=== PATIENT | female | born 1950 | race Caucasian/White ===

== ENCOUNTER 2017-01-15 19:09 | Inpatient (IN) | payer MEDICARE, BC ==
[2017-01-15] MEDS ORDERED: Sodium Chloride 0.9% 10 ML Syringe FLUSH PRN (19:40)
[2017-01-15] MEDS ORDERED: Labetalol 20 MG/4 ML Syringe IVPUSH ONE (20:15)
--- NOTE | 2017-01-15 22:05 | EDM.PDOC ---
ED HPI NEURO - General Chief Complaint: Neuro Symptoms/Deficits Stated Complaint: NUMBNESS LEFT SIDE Time Seen by Provider: 01/15/17 19:32 Source: Reports: Patient History Limitations: Reports: No limitations - History of Present Illness INITIAL COMMENTS - FREE TEXT/NARRATIVE: History of present illness: [A 66-year-old female presents with left-sided numbness of her arms and legs intermittent over the last week. She does have a history of a TIA about 16 years ago which was also left-sided. She is placed on statins aspirin beta jordan and lisinopril at that time has religiously taken them since then. She works part-time over at [employer] and today was working in her arm went numb her left arm and lasted for over an hour so she decided to come to ER and be evaluated. No ESTRADA. No slurred speech. No visual disturbance. No weakness. ] Review of systems: As per history of present illness and below otherwise all systems reviewed and negative. Past medical history: As per history of present illness and as reviewed below otherwise noncontributory. Surgical history: As per history of present illness and as reviewed below otherwise noncontributory. Social history: No reported history of drug or alcohol abuse. Family history: As per history of present illness and as reviewed below otherwise noncontributory. Physical exam: HEENT: Atraumatic, normocephalic, pupils reactive, negative for conjunctival pallor or scleral icterus, mucous membranes moist, throat clear, neck supple, nontender, trachea midline. Lungs: Clear to auscultation, breath sounds equal bilaterally, chest nontender. Heart: S1S2, regular, negative for clicks, rubs, or JVD. Abdomen: Soft, nondistended, nontender. Negative for masses or hepatosplenomegaly. Negative for costovertebral tenderness. Pelvis: Stable nontender. Genitourinary: Deferred. Rectal: Deferred. Extremities: Atraumatic, negative for cords or calf pain. Neurovascular unremarkable. Neuro: Awake, alert, oriented. Cranial nerves II through XII unremarkable. Left arm sensation to light touch was diminished but resolved while in ER Diagnostics: [CT neg. CBC and complete metabolic panel UA EKG all done her creatinine is elevated. EKG seems to be demonstrating a probable old anterior infarct] Therapeutics: [] Impression: [TIA] Plan: [I spoke with Dr. Reveles in [facility] regarding this patient. He suggested that she could be admitted and observed overnight and carotid artery studies done tomorrow as well as an MRI of her brain and then a echocardiogram could be performed on Saturday. He recommended that she could be switched to Plavix during the workup and then have neurology follow up. I spoke with Dr. Metcalf who agrees to this plan and will be coming in to do the admission] Definitive disposition and diagnosis as appropriate pending reevaluation and review of above. - Related Data Allergies/ADRs: Allergies Allergy/AdvReac Type Severity Reaction Status Date / Time No Known Allergies Allergy Verified 01/15/17 19:18 Home Meds: Home Meds Aspirin 325 mg PO DAILY 05/03/16 [History] Cyanocobalamin (Vitamin B-12) [B-12] 500 mcg PO DAILY 05/03/16 [History] Hydrochlorothiazide 25 mg PO DAILY 05/03/16 [History] Ibuprofen [Advil] 200 mg PO Q8H PRN 05/03/16 [History] Metoprolol Tartrate [Metoprolol Tartrate] 0.5 tab PO DAILY 05/03/16 [History] Pravastatin [Pravachol] 40 mg PO BEDTIME 05/03/16 [History] Rizatriptan [Maxalt MEAT COUNTER WORKER] 10 mg PO ASDIRECTED PRN 05/03/16 [History] Past Medical History HEENT History: Reports: Impaired vision Cardiovascular History: Reports: Hypertension 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: Musculoskeletal History: Reports: Arthritis Neurological History: Reports: Migraines, TIA Oncologic (Cancer) History: Reports: Other (see below) Other Oncologic History: precancerous cells, hysterectomy at age 39 - Infectious Disease History Infectious Disease History: Reports: Measles, Mumps - Past Surgical History HEENT Surgical History: Reports: Tonsillectomy GI Surgical History: Reports: Appendectomy, Colonoscopy Female Surgical History: Reports: Hysterectomy Musculoskeletal Surgical History: Reports: Knee replacement, Other (see below) Other Musculoskeletal Surgeries/Procedures:: left knee replacement in 2002; left ankle reconstruction Social & Family History - Family History Family Medical History: Noncontributory - Tobacco Use Smoking Status *Q: Former Smoker - Caffeine Use Caffeine Use: Reports: Coffee - Alcohol Use Days Per Week of Alcohol Use: 2 Number of Drinks Per Day: 1 Total Drinks Per Week: 2 - Recreational Drug Use Recreational Drug Use: No ED ROS GENERAL - Review of Systems Review Of Systems: ROS reveals no pertinent complaints other than HPI. ED EXAM, NEURO - Physical Exam Exam: See Below Course - Vital Signs Last Recorded V/S: Last Vital Signs Temp 35.3 C 01/15/17 20:39 Pulse 63 01/15/17 19:14 Resp 20 01/15/17 20:39 BP 157/78 H 01/15/17 20:39 Pulse Ox 96 01/15/17 20:39 - Orders/Labs/Meds Orders: Active Orders 24 hr Category Date Time Status EKG Documentation Completion [RC] ASDIRECTED Care 01/15/17 20:12 Active EKG Documentation Completion [RC] ASDIRECTED Care 01/15/17 21:14 Ordered CXR [Chest 2V] [CR] Stat Exams 01/15/17 21:25 Ordered Head wo Cont [CT] Stat Exams 01/15/17 19:32 Taken Sodium Chloride 0.9% [Saline Flush] Med 01/15/17 19:40 Active 10 ml FLUSH ASDIRECTED PRN Saline Lock Insert [OM.PC] Routine Oth 01/15/17 19:40 Ordered EKG 12 Lead [EK] Routine Ther 01/15/17 21:14 Ordered EKG 12 Lead [EK] Stat Ther 01/15/17 20:11 Ordered Medication Orders Sodium Chloride (Saline Flush) 10 ml FLUSH ASDIRECTED PRN PRN Reason: Keep Vein Open Last Admin: 01/15/17 20:08 Dose: 10 ml Labs: Laboratory Tests 01/15/17 01/15/17 01/15/17 Range/Units 20:11 20:29 20:29 WBC 7.8 (4.5-11.0) K/uL RBC 4.40 (3.30-5.50) M/uL Hgb 12.5 (12.0-15.0) g/dL Hct 38.3 (36.0-48.0) % MCV 87 (80-98) fL MCH 28 (27-31) pg MCHC 33 (32-36) % Plt Count 232 (150-400) K/uL Neut % (Auto) 61 (36-66) % Lymph % (Auto) 29 (24-44) % Douglas % (Auto) 8 H (2-6) % Eos % (Auto) 1 L (2-4) % Baso % (Auto) 0 (0-1) % ESR 11 (0-25) mm/hr PT 11.4 (9.5-12.0) sec INR 1.07 (0.80-1.20) Sodium 142 (140-148) mmol/L Potassium 3.7 (3.6-5.2) mmol/L Chloride 107 (100-108) mmol/L Carbon Dioxide 28 (21-32) mmol/L Anion Gap 6.8 (5.0-14.0) mmol/L BUN 21 H (7-18) mg/dL Creatinine 1.3 H (0.6-1.0) mg/dL Est Cr Clr Drug Dosing 37.73 mL/min Estimated GFR (MDRD) 41 L (>60) Glucose 94 (74-106) mg/dL Calcium 8.3 L (8.5-10.1) mg/dL Total Bilirubin 0.3 (0.2-1.0) mg/dL AST 19 (15-37) U/L ALT 25 (12-78) U/L Alkaline Phosphatase 36 L (46-116) U/L Troponin I (0.000-0.056) ng/mL C-Reactive Protein (0.0-0.3) mg/dL Total Protein 6.8 (6.4-8.2) g/dL Albumin 3.9 (3.4-5.0) g/dL Globulin 2.9 (2.3-3.5) g/dL Albumin/Globulin Ratio 1.3 (1.2-2.2) 01/15/17 01/15/17 Range/Units 20:29 20:48 WBC (4.5-11.0) K/uL RBC (3.30-5.50) M/uL Hgb (12.0-15.0) g/dL Hct (36.0-48.0) % MCV (80-98) fL MCH (27-31) pg MCHC (32-36) % Plt Count (150-400) K/uL Neut % (Auto) (36-66) % Lymph % (Auto) (24-44) % Douglas % (Auto) (2-6) % Eos % (Auto) (2-4) % Baso % (Auto) (0-1) % ESR (0-25) mm/hr PT (9.5-12.0) sec INR (0.80-1.20) Sodium (140-148) mmol/L Potassium (3.6-5.2) mmol/L Chloride (100-108) mmol/L Carbon Dioxide (21-32) mmol/L Anion Gap (5.0-14.0) mmol/L BUN (7-18) mg/dL Creatinine (0.6-1.0) mg/dL Est Cr Clr Drug Dosing mL/min Estimated GFR (MDRD) (>60) Glucose (74-106) mg/dL Calcium (8.5-10.1) mg/dL Total Bilirubin (0.2-1.0) mg/dL AST (15-37) U/L ALT (12-78) U/L Alkaline Phosphatase (46-116) U/L Troponin I < 0.017 (0.000-0.056) ng/mL C-Reactive Protein 0.09 (0.0-0.3) mg/dL Total Protein (6.4-8.2) g/dL Albumin (3.4-5.0) g/dL Globulin (2.3-3.5) g/dL Albumin/Globulin Ratio (1.2-2.2) Meds: Medications Generic Name Dose Route Start Last Admin Trade Name Freq PRN Reason Stop Dose Admin Sodium Chloride 10 ml 01/15/17 19:40 01/15/17 20:08 Saline Flush FLUSH 10 ml ASDIRECTED PRN Administration Keep Vein Open Discontinued Medications Generic Name Dose Route Start Last Admin Trade Name Freq PRN Reason Stop Dose Admin Labetalol HCl 20 mg 01/15/17 20:15 01/15/17 20:26 Normodyne IVPUSH 01/15/17 20:16 20 mg NOW ONE Administration Departure - Departure Time of Disposition: 22:04 Disposition: Admitted As Inpatient 65 Clinical Impression: TIA (transient ischemic attack) Qualifiers: Transient cerebral ischemia type: unspecified Qualified Code(s): G45.9 - Transient cerebral ischemic attack, unspecified Forms: ED Department Discharge - My Orders Last 24 Hours: My Active Orders 01/15/17 19:32 Head wo Cont [CT] Stat 01/15/17 19:40 Sodium Chloride 0.9% [Saline Flush] 10 ml FLUSH ASDIRECTED PRN Saline Lock Insert [OM.PC] Routine 01/15/17 20:11 EKG 12 Lead [EK] Stat 01/15/17 20:12 EKG Documentation Completion [RC] ASDIRECTED 01/15/17 21:14 EKG Documentation Completion [RC] ASDIRECTED EKG 12 Lead [EK] Routine 01/15/17 21:25 CXR [Chest 2V] [CR] Stat - Assessment/Plan Last 24 Hours: My Active Orders 01/15/17 19:32 Head wo Cont [CT] Stat 01/15/17 19:40 Sodium Chloride 0.9% [Saline Flush] 10 ml FLUSH ASDIRECTED PRN Saline Lock Insert [OM.PC] Routine 01/15/17 20:11 EKG 12 Lead [EK] Stat 01/15/17 20:12 EKG Documentation Completion [RC] ASDIRECTED 01/15/17 21:14 EKG Documentation Completion [RC] ASDIRECTED EKG 12 Lead [EK] Routine 01/15/17 21:25 CXR [Chest 2V] [CR] Stat
[2017-01-15] MEDS ORDERED: Pravastatin 20 MG Tab PO SCH (23:30)
[2017-01-16] MEDS: Clopidogrel 75 MG Tab PO SCH ×2 (00:32→08:24)
[2017-01-16] MEDS: Acetaminophen 325 MG Tab PO PRN ×2 (04:24→08:30)
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
[2017-01-16] MEDS ORDERED: Metoprolol Tartrate 25 MG Tab PO SCH (09:00)
[2017-01-16] MEDS ORDERED: Hydrochlorothiazide 25 MG Tab PO SCH (09:00)
[2017-01-16] MEDS ORDERED: Aspirin 325 MG Tab.EC PO SCH (09:00)
--- NOTE | 2017-01-16 09:20 | CR ---
Chest 2V HISTORY: TIA FINDINGS: The heart and vascular structures are normal in appearance. No infiltrates or effusions ar e demonstrated. The skeletal structures are unremarkable. IMPRESSION: Negative exam.
[2017-01-16] MEDS: Acetaminophen/Aspirin/Caffeine 250-250-65 MG Tab PO PRN ×2 (09:58→15:16)
--- NOTE | 2017-01-16 10:51 | PN ---
DATE OF SERVICE: 01/16/2017 SUBJECTIVE: This 66-year-old female was admitted in the late evening hours yesterday with recurring episodes of numbness and tingling in the left side of the extremities suggesting possible recurrent TIAs. She had no motor changes, no mental status impairment reported by the patient though with ongoing neurologic symptoms presented to the hospital for evaluation of numbness and tingling in the left upper extremity, resolved during emergency room evaluation. She was admitted for further diagnostic evaluation. She has been comfortable through the night without recurring numbness or tingling. She denies difficulty with visual distortion of thought and speech or balance. Appetite is fair. She is resting comfortably. OBJECTIVE: VITAL SIGNS: Blood pressure 121/88, pulse rate 61, sinus rhythm by cardiac monitoring, O2 sats 95% on room air, and respiratory rate 16. HEENT: No facial asymmetries. Extraocular eye movements are intact. Speech is clear. NECK: Brisk carotid pulses. No bruits. LUNGS: Clear and non tachypneic. HEART: Regular without gallops. Grade 2 systolic murmur is unchanging. EXTREMITIES: Warm pink and dry. Symmetrical strength in the upper and lower extremities. No paresthesias noted. IMPRESSION AND PLANS: Recurring episodes of sensory changes in the left-sided extremities suggesting TIAs in addition to her maintenance therapy of aspirin antiplatelet products, did also initiate Plavix 75 mg daily. She has bilateral carotid Dopplers and MRI of the head pending for later today. If imaging is found to be unremarkable, would consider discharge to home and outpatient followup tomorrow for echocardiogram to assess cardiac function and noted murmur with review in clinic early next week and consideration to referral to Neurology services to be entertained at the time of clinic follow up. If she has significant pathology noted on imaging today, we will discuss further referral for specialty service evaluation. Garett Metcalf MD /[id number]
--- NOTE | 2017-01-16 11:48 | US ---
Carotid Comp FINDINGS: The carotid arteries were assessed bilaterally with duplex imaging. There is no significan t plaque formation. There are normal peak systolic velocities within the internal carotid arteries. The right measures 82 cm per second and the left 124 cm per second. The ICA/CCA ratios are within no rmal limits. The external carotid arteries are patent bilaterally. There is antegrade flow within julee th vertebral arteries. IMPRESSION: Negative examination.
--- NOTE | 2017-01-16 14:04 | MR ---
Brain wo Cont HISTORY: No Clinical Info COMPARISON: March 2011 TECHNIQUE: The brain was imaged in the axial, sagittal, and coronal planes utilizing T1, gradient ec ho, T2, FLAIR, and diffusion-weighted techniques. FINDINGS:There are a few scattered foci of signal hyperintensity involving the deep white matter on the long TR sequences. These findings are unchanged. There is no associated mass effect or edema. Th e findings are most consistent with chronic ischemic microvascular changes of the white matter. Ther e are no space-occupying lesions. There is no hemorrhage, mass effect, or edema. Diffusion-weighted images demonstrate no findings for acute ischemia. The orbital structures appear unremarkable. There are no significant inflammatory changes of the sinuses. Normal appearing flow voids are demonstrate d throughout the cerebral vasculature. IMPRESSION 1. Stable age-related involutional changes of the brain. 2. No acute intracranial abnormalities are demonstrated.
[2017-01-16 14:46] VITALS: BP 135/87
--- NOTE | 2017-01-16 17:02 | PCM.DCSUM1 ---
Discharge Summary - Hospital Course Brief History: This patient is a 66-year-old woman who is admitted to observation status through the emergency department after she experienced recurrent episodes of left-sided numbness, felt to represent TIAs. - Discharge Data Discharge Date: 01/16/17 Discharge Disposition: Home, Self-Care 01 Condition: Fair - Discharge Diagnosis/Problem(s) (1) TIA (transient ischemic attack) SNOMED Code(s): 871434364, [id number] ICD Code: G45.9 - TRANSIENT CEREBRAL ISCHEMIC ATTACK, UNSPECIFIED Status: Acute Current Visit: Yes Qualifiers: Transient cerebral ischemia type: unspecified Qualified Code(s): G45.9 - Transient cerebral ischemic attack, unspecified - Patient Summary/Data Consults: Consultations 01/16/17 09:08 Consult to Physician [CONS] Routine Consulting Provider: Harrison Nelson Call Completed to Consulting Physician: Yes Reason for Consult: assume care Date Notified: 01/16/17 Time Notified: 09:00 Hospital Course: Ms. Reese is a 66-year-old woman who was admitted to observation status last night by Dr. Metcalf with a recent history of intermittent episodes of numbness involving her left upper and lower extremities. She does have a previous history of TIA and has been on aspirin over the past 16 years. Over the last 6 days has had several episodes of numbness involving the left upper and lower extremities. On the evening of admission developed similar symptoms in her left arm but did not resolve after several minutes she presented to the emergency room for further evaluation. Eventually symptoms did resolve in the emergency department, CT scan of the head without contrast showed no significant abnormalities. She was admitted to the hospital on observation status, neuro checks showed no new or persistent neurologic symptoms. Carotid Doppler studies were obtained and showed no evidence of significant blockage in the carotid arteries. MRI of the head was also obtained and showed no significant abnormalities. She had no recurrence of her symptoms during the course of her hospitalization. While in the emergency department neurology cardiac monitor technician had been contacted and they recommended that she continue the aspirin and be placed on Plavix 75 mg by mouth daily. Echocardiogram will be scheduled for tomorrow as an outpatient to evaluate for cardiac source of emboli. She's instructed to return to the emergency department immediately if she notes any recurrent symptoms on current therapy. She will be off work until January 21, activity will otherwise be as tolerated and she will resume her usual diet. Followup appointment has already been scheduled with her primary care provider for January 21. Recommended that she be scheduled for a neurology consult for further evaluation of symptoms. - Patient Instructions Diet: Usual Diet as Tolerated Activity: As Tolerated Other/Special Instructions: Schedule outpatient echocardiogram for tomorrow January 17, to evaluate for cardiac source of emboli. Patient already has appointment scheduled with her primary care provider for January 21. Instructed patient to return to the emergency department immediately if she notes any recurrent symptoms. - Discharge Plan Prescriptions/Med Rec: Clopidogrel [Plavix] 75 mg PO DAILY #30 tablet Home Medications: Home Meds Aspirin 325 mg PO DAILY 05/03/16 [History] Cyanocobalamin (Vitamin B-12) [B-12] 500 mcg PO DAILY 05/03/16 [History] Hydrochlorothiazide 25 mg PO DAILY 05/03/16 [History] Ibuprofen [Advil] 200 mg PO Q8H PRN 05/03/16 [History] Metoprolol Tartrate 0.5 tab PO DAILY 05/03/16 [History] Pravastatin [Pravachol] 40 mg PO BEDTIME 05/03/16 [History] Rizatriptan [Maxalt TECHNOLOGY INTEGRATION SPECIALIST] 10 mg PO ASDIRECTED PRN 05/03/16 [History] Krill/Om-3/DHA/EPA/Phospho/Ast [Krill Oil 500 mg Softgel] 1 cap PO DAILY [History] Clopidogrel [Plavix] 75 mg PO DAILY #30 tablet 01/16/17 [Rx] Referrals: Fannie Sanders PA [Primary Care Provider] - - Patient Data Vitals - Most Recent: Last Vital Signs Temp 97.8 F 01/16/17 14:45 Pulse 66 01/16/17 14:45 Resp 16 01/16/17 14:45 BP 135/87 01/16/17 14:45 Pulse Ox 97 01/16/17 14:45 Weight - Most Recent: 166 lb 7.184 oz I&O - Last 24 hours: Intake & Output 01/16/17 01/16/17 01/16/17 06:59 14:59 22:59 Intake Total 320 1100 Output Total 1000 Balance -680 1100 Med Orders - Current: Current Medications Acetaminophen (Tylenol) 650 mg PO Q4H PRN PRN Reason: analgesia/fever Last Admin: 01/16/17 08:30 Dose: 650 mg Acetaminophen/Aspirin/Caffeine (Excedrin Extra Strength) 1 tab PO Q4H PRN PRN Reason: Headache Last Admin: 01/16/17 15:16 Dose: 1 tab Aspirin (Ecotrin) 325 mg PO DAILY [facility] Last Admin: 01/16/17 08:24 Dose: 325 mg Clopidogrel Bisulfate (Plavix) 75 mg PO DAILY [facility] Last Admin: 01/16/17 08:24 Dose: 75 mg Hydrochlorothiazide (Hydrochlorothiazide) 25 mg PO DAILY [facility] Last Admin: 01/16/17 08:23 Dose: 25 mg Metoprolol Tartrate (Lopressor) 12.5 mg PO DAILY [facility] Last Admin: 01/16/17 08:24 Dose: 12.5 mg Pravastatin Sodium (Pravachol) 40 mg PO BEDTIME [facility] Last Admin: 01/16/17 00:29 Dose: Not Given Sodium Chloride (Saline Flush) 10 ml FLUSH ASDIRECTED PRN PRN Reason: Keep Vein Open Last Admin: 01/15/17 20:08 Dose: 10 ml Discontinued Medications Labetalol HCl (Normodyne) 20 mg IVPUSH NOW ONE Stop: 01/15/17 20:16 Last Admin: 01/15/17 20:26 Dose: 20 mg *Q Meaningful Use (DIS) - VTE *Q VTE Criteria *Q: - Stroke *Q Stroke Criteria *Q: - AMI *Q AMI Criteria *Q:
== END 2017-01-16 17:57 | disposition home or self-care (01) | DRG 69 ==
LOC: JP.ED 19:09 → JP.MS 23:01
PROVIDERS: ADMIT Family Medicine; ATTEND Family Medicine
DX: G45.9 Transient cerebral ischemic attack, unspecified (principal); Z79.82 Long term (current) use of aspirin; Z96.652 Presence of left artificial knee joint; I10 Essential (primary) hypertension; E78.5 Hyperlipidemia, unspecified
CPT/HCPCS: 36415; 70450; 71020 ×2; 80053; 84484; 85025; 85610; 85651; 86140; 93005 ×2; 99285 ×2; J7050; 70551; 70551-26; 93010; 93880; 93880-26; A9270-GY

== ENCOUNTER 2017-11-05 16:35 | Emergency (ER) | payer MEDICARE, BC ==
[2017-11-05 19:34] VITALS: BP 176/99
--- NOTE | 2017-11-05 19:42 | EDM.PDOC ---
ED HPI GENERAL MEDICAL PROBLEM - General Chief Complaint: Neck Problem Stated Complaint: PAIN IN NECK Time Seen by Provider: 11/05/17 18:21 Source of Information: Reports: Patient, Provider History Limitations: Reports: No Limitations - History of Present Illness INITIAL COMMENTS - FREE TEXT/NARRATIVE: This lady comes over from clinic with pain in her neck. She describes it as just sort of an ache in the neck believe it's been going on all day long. She saw the clinic doctor who did an EKG on her and compare that to an old EKG from about 2010 and thought there are a lot of changes so sent her here for evaluation thinking there might be some cardiac problem going on. Patient says she did have some kind of heart damage in past. Presently she describes a discomfort in the side of her neck starts just below the left ear extends Inferiorly and then back to the upper shoulder she points to the fibers of the upper fibers of the left trapezius. She does say when she moves her neck it feels real tight. She says it's not really a pain no. No other neurovascular complaints. She was doing a lot of snow shoveling today. She never had any chest pain or palpitations. Dr. Mendosa took the call from the clinic physician prior to my arrival and he reviewed the conversation with me. neck Pain Score (Numeric/FACES): 2 - Related Data Allergies Allergy/AdvReac Type Severity Reaction Status Date / Time morphine Allergy Nausea and Verified 11/05/17 17:16 Vomiting Home Meds: Home Meds Aspirin 325 mg PO DAILY 05/03/16 [History] Cyanocobalamin (Vitamin B-12) [B-12] 500 mcg PO DAILY 05/03/16 [History] Hydrochlorothiazide 25 mg PO DAILY 05/03/16 [History] Ibuprofen [Advil] 200 mg PO Q8H PRN 05/03/16 [History] Metoprolol Tartrate 12.5 mg PO DAILY 05/03/16 [History] Pravastatin [Pravachol] 40 mg PO BEDTIME 05/03/16 [History] Rizatriptan [Maxalt DISTRIBUTION WAREHOUSE MANAGER] 10 mg PO ASDIRECTED PRN 05/03/16 [History] Krill/Om-3/DHA/EPA/Phospho/Ast [Krill Oil 500 mg Softgel] 1 cap PO DAILY [History] Past Medical History HEENT History: Reports: Impaired Vision Cardiovascular History: Reports: High Cholesterol, Hypertension 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: Musculoskeletal History: Reports: Arthritis Neurological History: Reports: Migraines, TIA Oncologic (Cancer) History: Reports: Other (See Below) Other Oncologic History: precancerous cells, hysterectomy at age 39 - Infectious Disease History Infectious Disease History: Reports: Measles, Mumps - Past Surgical History GI Surgical History: Reports: Appendectomy, Colonoscopy Female Surgical History: Reports: Hysterectomy Musculoskeletal Surgical History: Reports: Knee Replacement Social & Family History - Family History Family Medical History: Noncontributory - Tobacco Use Smoking Status *Q: Former Smoker Used Tobacco, but Quit: No - Caffeine Use Caffeine Use: Reports: Coffee - Alcohol Use Days Per Week of Alcohol Use: 2 Number of Drinks Per Day: 1 Total Drinks Per Week: 2 - Recreational Drug Use Recreational Drug Use: No ED ROS GENERAL - Review of Systems Review Of Systems: ROS reveals no pertinent complaints other than HPI. ED EXAM, UPPER BACK/NECK PAIN - Physical Exam Exam: See Below Exam Limited By: No Limitations General Appearance: Alert, WD/WN, No Apparent Distress Eye Exam: Bilateral Eye: Normal Inspection Ears Exam: Normal External Exam, Normal TMs Throat/Mouth Exam: Normal Inspection Head Exam: Atraumatic Neck Exam: Full Range of Motion, Other (There is some very slight tenderness to the left side of the patient's neck. There is palpable spasm to the upper trapezius on the left. This area is mildly tender.). No: Non-Tender Cardiovascular/Respiratory: Regular Rate, Rhythm, Normal Peripheral Pulses, Other (Lungs clear) Course - Vital Signs Last Recorded V/S: Last Vital Signs Temp 35.5 C 11/05/17 19:33 Pulse 73 11/05/17 19:33 Resp 16 11/05/17 19:33 BP 176/99 H 11/05/17 19:33 Pulse Ox 96 11/05/17 19:33 - Orders/Labs/Meds Orders: Active Orders 24 hr Category Date Time Status EKG Documentation Completion [RC] ASDIRECTED Care 11/05/17 18:03 Active EKG 12 Lead [EK] Routine Ther 11/05/17 18:03 Ordered Labs: Laboratory Tests 11/05/17 11/05/17 Range/Units 18:52 18:52 WBC 6.0 (4.5-11.0) K/uL RBC 4.53 (3.30-5.50) M/uL Hgb 13.2 (12.0-15.0) g/dL Hct 39.2 (36.0-48.0) % MCV 87 (80-98) fL MCH 29 (27-31) pg MCHC 34 (32-36) % Plt Count 220 (150-400) K/uL Neut % (Auto) 55 (36-66) % Lymph % (Auto) 35 (24-44) % [place] % (Auto) 9 H (2-6) % Eos % (Auto) 1 L (2-4) % Baso % (Auto) 0 (0-1) % Sodium 141 (140-148) mmol/L Potassium 4.0 (3.6-5.2) mmol/L Chloride 105 (100-108) mmol/L Carbon Dioxide 26 (21-32) mmol/L Anion Gap 10.5 (5.0-14.0) mmol/L BUN 16 (7-18) mg/dL Creatinine 0.7 (0.6-1.0) mg/dL Est Cr Clr Drug Dosing 66.42 mL/min Estimated GFR (MDRD) > 60 (>60) Glucose 93 (74-106) mg/dL Calcium 9.1 (8.5-10.1) mg/dL Total Bilirubin 0.5 D (0.2-1.0) mg/dL AST 26 (15-37) U/L ALT 27 (12-78) U/L Alkaline Phosphatase 68 D (46-116) U/L Troponin I < 0.017 (0.000-0.056) ng/mL Total Protein 7.2 (6.4-8.2) g/dL Albumin 4.0 (3.4-5.0) g/dL Globulin 3.2 (2.3-3.5) g/dL Albumin/Globulin Ratio 1.3 (1.2-2.2) - Re-Assessments/Exams Free Text/Narrative Re-Assessment/Exam: 11/05/17 19:40 EKG shows sinus rhythm at 74 bpm there appears to be an old inferior [place] and large Q-wave in lead 3 was seen in January 2017. Today's EKG shows a Q in 3 and a Q in aVF did not see a Q in aVF back in January of this year. There is loss of R- wave height V1 to 3 and 4 which was previously seen although the January EKG did show a tiny R-wave in V2 overall I don't think there is any significant change. There are no ST or T changes. CBC CMP were all normal troponin was negative I don't think there is any chance of any ongoing heart disease in this lady just muscle spasm Departure - Departure Time of Disposition: 19:42 Disposition: Home, Self-Care 01 Condition: Fair Clinical Impression: Neck muscle spasm, Spasm of thoracic back muscle - Discharge Information Referrals: Fannie Sanders PA [Primary Care Provider] - Additional Instructions: This muscle spasms probably from minor. She nerve in the neck. These spasms generally go away within a few days. Chiropractor can frequently fix set although I don't really recommend that since there is always a slight risk in some damage to arteries in the neck. Tylenol and/or ibuprofen should be sufficient for pain relief see your Dr. if you're not better in a few days - My Orders Last 24 Hours: My Active Orders 11/05/17 18:03 EKG Documentation Completion [RC] ASDIRECTED EKG 12 Lead [EK] Routine - Assessment/Plan Last 24 Hours: My Active Orders 11/05/17 18:03 EKG Documentation Completion [RC] ASDIRECTED EKG 12 Lead [EK] Routine
== END 2017-11-05 19:40 | disposition home or self-care (01) ==
LOC: JP.ED 16:35
DX: M62.830 Muscle spasm of back (principal); M62.838 Other muscle spasm; E78.00 Pure hypercholesterolemia, unspecified; I10 Essential (primary) hypertension; Z88.5 Allergy status to narcotic agent; Z87.891 Personal history of nicotine dependence; Z79.82 Long term (current) use of aspirin; Z79.899 Other long term (current) drug therapy
CPT/HCPCS: 36415; 80053; 84484; 85025; 99283; 99284-25

== ENCOUNTER 2018-12-25 08:06 | Day surgery (SDC) | payer MEDICARE, BC ==
[2018-12-25] MEDS ORDERED: Midazolam 1 MG/ML 2 ML SDV ONE (08:30)
[2018-12-25] MEDS ORDERED: fentaNYL 100 MCG/2 ML SDV ONE (08:30)
[2018-12-25] MEDS ORDERED: Propofol 200 MG/20 ML SDV ONE (08:30)
[2018-12-25] MEDS ORDERED: Sodium Chloride 0.9% 1,000 ML IV SCH (08:45)
--- NOTE | 2018-12-25 10:22 | OR ---
DATE OF PROCEDURE: 12/25/2018 PROCEDURE: Colonoscopy. FINDINGS: Normal colonoscopy. PREOPERATIVE DIAGNOSIS: Diarrhea. POSTOPERATIVE DIAGNOSIS: Diarrhea. RISKS: Risks, benefits, alternatives, and limitations including, but not limited to infection, bleeding, and perforation were explained to the patient, who wished to proceed. PROCEDURE IN DETAIL: The patient was placed in left lateral decubitus position. A digital rectal exam was performed without abnormality. Scope was introduced and advanced atraumatically to the ileocecal valve. The scope was brought back to the ascending, transverse, descending colon, and retroflexed. No evidence of colitis, inflammation, evidence of irritable or inflammatory bowel disease. No diverticulosis. No old or new blood. The patient tolerated the procedure well. Jaret Mcdonald MD /[id number]
[2018-12-25 10:46] VITALS: BP 155/79
== END 2018-12-25 11:00 | disposition home or self-care (01) ==
LOC: JP.SDS 08:06
PROVIDERS: ATTEND Surgery
DX: R19.7 Diarrhea, unspecified (principal); I10 Essential (primary) hypertension; E78.5 Hyperlipidemia, unspecified; F32.9 Major depressive disorder, single episode, unspecified; Z86.73 Personal history of transient ischemic attack (TIA), and cerebral infarction without residual deficits; Z88.5 Allergy status to narcotic agent
CPT/HCPCS: 45378; J2250; J2704; J3010; J7030

== ENCOUNTER 2020-08-14 23:48 | Emergency (ER) | payer MEDICARE, BC, OTHER ==
--- NOTE | 2020-08-15 00:20 | EDM.PDOC ---
ED HPI GENERAL MEDICAL PROBLEM - General Chief Complaint: General Stated Complaint: WEAKNESS Time Seen by Provider: 08/15/20 00:18 Source of Information: Reports: Patient History Limitations: Reports: No Limitations - History of Present Illness INITIAL COMMENTS - FREE TEXT/NARRATIVE: PT HAD A COVID RUN ON THE . tHIS TURNED OUT POSITIVE. Onset: Gradual, Other ( SYMPTOMATIC ON THE . S) Duration: Hour(s): Location: Reports: Generalized, Other (PT HAS GENERALIZED WEAKNESS. ) Associated Symptoms: Reports: Cough, Loss of Appetite, Shortness of Breath, Weakness denies pain Pain Score (Numeric/FACES): 0 - Related Data Allergies Allergy/AdvReac Type Severity Reaction Status Date / Time morphine AdvReac Nausea and Verified 08/15/20 00:01 Vomiting Home Meds: Home Meds Aspirin 325 mg PO DAILY 05/03/16 [History] Hydrochlorothiazide 25 mg PO DAILY 05/03/16 [History] Metoprolol Tartrate 12.5 mg PO DAILY 05/03/16 [History] Pravastatin [Pravachol] 40 mg PO BEDTIME 05/03/16 [History] Multivitamin [Multi-Vitamin Daily] 1 each PO DAILY 12/25/18 [History] Past Medical History HEENT History: Reports: Impaired Vision Cardiovascular History: Reports: High Cholesterol, Hypertension Gastrointestinal History: Reports: Chronic Diarrhea, Other (See Below) Other Gastrointestinal History: microscopic colitis 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: Musculoskeletal History: Reports: Arthritis Neurological History: Reports: Migraines, TIA Hematologic History: Reports: B12 Deficiency Oncologic (Cancer) History: Reports: Other (See Below) Other Oncologic History: precancerous cells, hysterectomy at age 39 - Infectious Disease History Infectious Disease History: Reports: Chicken Pox, Measles, Mumps, Novel Coronavirus - Past Surgical History HEENT Surgical History: Reports: Cataract Surgery, Tonsillectomy Cardiovascular Surgical History: Reports: None GI Surgical History: Reports: Appendectomy, Colonoscopy Female Surgical History: Reports: Hysterectomy Neurological Surgical History: Reports: None Musculoskeletal Surgical History: Reports: Knee Replacement, Other (See Below) Other Musculoskeletal Surgeries/Procedures:: Ankle reconstruction surgery after fracture. Social & Family History - Family History Family Medical History: Noncontributory - Tobacco Use Smoking Status *Q: Never Smoker - Caffeine Use Caffeine Use: Reports: Coffee - Recreational Drug Use Recreational Drug Use: No ED ROS GENERAL - Review of Systems Review Of Systems: See Below Constitutional: Reports: Fever, Chills, Weakness, Fatigue, Decreased Appetite HEENT: Reports: No Symptoms Respiratory: Reports: Shortness of Breath Cardiovascular: Reports: No Symptoms Endocrine: Reports: No Symptoms GI/Abdominal: Reports: No Symptoms : Reports: No Symptoms Musculoskeletal: Reports: No Symptoms Skin: Reports: No Symptoms ED EXAM, GENERAL - Physical Exam Exam: See Below Free Text/Narrative:: Pt became covid 19 positive on aug 10. She was feeling weak and she had a slight coyugh. Since that time she has felt weaker and weaker and she is not eating and drinking normally. Exam Limited By: No Limitations General Appearance: Alert, Anxious, Other (pupils equal and reactive. ) Ears: Normal TMs Nose: Other ( mild nasl draiage and drainage going down her throat. ) Throat/Mouth: Normal Inspection Head: Atraumatic Neck: Normal Inspection Respiratory/Chest: No Respiratory Distress, Other (pt does have a resp rate of 24 and her o2 sats are 93) Cardiovascular: Regular Rate, Rhythm GI/Abdominal: Soft, No Mass, Other (mild epigastric tenderness) (Female) Exam: Deferred Rectal (Female) Exam: Deferred Back Exam: Normal Inspection Extremities: Normal Inspection Neurological: Alert, Oriented, Normal Cognition, Other ( pt is very pale and s eems not her usual self. ) Psychiatric: Anxious Course - Vital Signs Last Recorded V/S: Last Vital Signs Temp 36.6 C 08/15/20 01:18 Pulse 67 08/15/20 01:18 Resp 21 H 08/15/20 01:18 BP 125/89 08/15/20 01:18 Pulse Ox 96 08/15/20 01:18 - Orders/Labs/Meds Labs: Laboratory Tests 08/15/20 08/15/20 08/15/20 Range/Units 00:15 00:15 00:15 WBC 3.1 L (4.5-11.0) K/uL RBC 4.97 (3.30-5.50) M/uL Hgb 14.2 (12.0-15.0) g/dL Hct 43.2 (36.0-48.0) % MCV 87 (80-98) fL MCH 29 (27-31) pg MCHC 33 (32-36) % Plt Count 276 (150-400) K/uL Neut % (Auto) 54 (36-66) % Lymph % (Auto) 35 (24-44) % [place] % (Auto) 10 H (2-6) % Eos % (Auto) 0 L (2-4) % Baso % (Auto) 0 (0-1) % D-Dimer, Quantitative (0.0-400.0) ng/mL Sodium 131 L (140-148) mmol/L Potassium 3.5 L (3.6-5.2) mmol/L Chloride 96 L (100-108) mmol/L Carbon Dioxide 23 (21-32) mmol/L Anion Gap 15.5 H (5.0-14.0) mmol/L BUN 20 H (7-18) mg/dL Creatinine 1.0 (0.6-1.0) mg/dL Est Cr Clr Drug Dosing 46.43 mL/min Estimated GFR (MDRD) 55 L (>60) Glucose 102 (74-106) mg/dL Calcium 9.1 (8.5-10.1) mg/dL Total Bilirubin 0.3 (0.2-1.0) mg/dL AST 42 H (15-37) U/L ALT 42 (12-78) U/L Alkaline Phosphatase 66 (46-116) U/L Lactate Dehydrogenase 285 H (82-234) U/L C-Reactive Protein 2.72 H (0.0-0.3) mg/dL Total Protein 7.7 (6.4-8.2) g/dL Albumin 3.9 (3.4-5.0) g/dL Globulin 3.8 H (2.3-3.5) g/dL Albumin/Globulin Ratio 1.0 L (1.2-2.2) Urine Color (YELLOW) Urine Appearance (CLEAR) Urine pH (5.0-8.0) Ur Specific [place] (1.008-1.030) Urine Protein (NEGATIVE) mg/dL Urine Glucose (UA) (NEGATIVE) mg/dL Urine Ketones (NEGATIVE) mg/dL Urine Occult Blood (NEGATIVE) Urine Nitrite (NEGATIVE) Urine Bilirubin (NEGATIVE) Urine Urobilinogen (0.2-1.0) EU/dL Ur Leukocyte Esterase (NEGATIVE) Urine RBC (0-5) Urine WBC (0-5) Ur Epithelial Cells Amorphous Sediment Urine Bacteria Urine Mucus 10/05/20 10/05/20 Range/Units 00:15 00:46 WBC (4.5-11.0) K/uL RBC (3.30-5.50) M/uL Hgb (12.0-15.0) g/dL Hct (36.0-48.0) % MCV (80-98) fL MCH (27-31) pg MCHC (32-36) % Plt Count (150-400) K/uL Neut % (Auto) (36-66) % Lymph % (Auto) (24-44) % [place] % (Auto) (2-6) % Eos % (Auto) (2-4) % Baso % (Auto) (0-1) % D-Dimer, Quantitative 508 H (0.0-400.0) ng/mL Sodium (140-148) mmol/L Potassium (3.6-5.2) mmol/L Chloride (100-108) mmol/L Carbon Dioxide (21-32) mmol/L Anion Gap (5.0-14.0) mmol/L BUN (7-18) mg/dL Creatinine (0.6-1.0) mg/dL Est Cr Clr Drug Dosing mL/min Estimated GFR (MDRD) (>60) Glucose (74-106) mg/dL Calcium (8.5-10.1) mg/dL Total Bilirubin (0.2-1.0) mg/dL AST (15-37) U/L ALT (12-78) U/L Alkaline Phosphatase (46-116) U/L Lactate Dehydrogenase (82-234) U/L C-Reactive Protein (0.0-0.3) mg/dL Total Protein (6.4-8.2) g/dL Albumin (3.4-5.0) g/dL Globulin (2.3-3.5) g/dL Albumin/Globulin Ratio (1.2-2.2) Urine Color Yellow (YELLOW) Urine Appearance Clear (CLEAR) Urine pH 6.0 (5.0-8.0) Ur Specific [place] >= 1.030 (1.008-1.030) Urine Protein 30 H (NEGATIVE) mg/dL Urine Glucose (UA) Negative (NEGATIVE) mg/dL Urine Ketones Negative (NEGATIVE) mg/dL Urine Occult Blood Negative (NEGATIVE) Urine Nitrite Negative (NEGATIVE) Urine Bilirubin Small H (NEGATIVE) Urine Urobilinogen 0.2 (0.2-1.0) EU/dL Ur Leukocyte Esterase Negative (NEGATIVE) Urine RBC 0-5 (0-5) Urine WBC 0-5 (0-5) Ur Epithelial Cells Few Amorphous Sediment Not seen Urine Bacteria Moderate Urine Mucus Not seen Meds: Medications Discontinued Medications Generic Name Dose Route Start Last Admin Trade Name Freq PRN Reason Stop Dose Admin Famotidine 20 mg 08/15/20 01:19 08/15/20 01:26 Pepcid IVPUSH 08/15/20 01:20 20 mg ONETIME ONE Administration Sodium Chloride 1,000 mls @ 999 mls/hr 08/15/20 00:30 08/15/20 00:26 Normal Saline IV 999 mls/hr ASDIRECTED HAKEEM Administration Sodium Chloride 1,000 mls @ 300 mls/hr 08/15/20 01:30 08/15/20 01:22 Normal Saline IV 300 mls/hr ASDIRECTED HAKEEM Administration Sodium Chloride 100 mls @ 4 mls/sec 08/15/20 03:55 08/15/20 04:07 Normal Saline IV 08/15/20 03:56 4 mls/sec ASDIRECTED STA Administration Iopamidol 100 ml 08/15/20 03:55 08/15/20 04:06 Isovue-370 (76%) IV 08/15/20 03:56 100 ml . DIRECTED STA Administration Ondansetron HCl 4 mg 08/15/20 00:31 08/15/20 00:36 Zofran IVPUSH 08/15/20 00:32 4 mg ONETIME ONE Administration - Re-Assessments/Exams Free Text/Narrative Re-Assessment/Exam: 08/15/20 01:22 pt has sig elwevation in her ddimer, ldh and her crp. Her wbc is quite low at 3.1. She is dehydrated, She has been having 3 stools a day, these are diarrhea. 08/15/20 01:24 08/15/20 03:44 Janelle did accept the pt. A angio of the chest was requested prior to transfer. The valeriano did not reveal any pulmonary emboli but thre was definite infiltrates present. Departure - Departure Time of Disposition: 01:28 Disposition: DC/Tfer to Acute Hospital 02 Condition: Fair Clinical Impression: COVID-19, Dehydration, Pneumonia, Leukopenia - Discharge Information Referrals: PCP,None [Primary Care Provider] - Forms: ED Department [facility] Sepsis Event Note (ED) - Evaluation Sepsis Screening Result: Possible Sepsis Risk
[2020-08-15] MEDS ORDERED: Sodium Chloride 0.9% 1,000 ML IV SCH ×2 (00:30→01:30)
[2020-08-15] MEDS ORDERED: Ondansetron 4 MG/2 ML SDV IVPUSH ONE (00:31)
[2020-08-15 01:19] VITALS: BP 125/89; PULSE 67
[2020-08-15] MEDS ORDERED: Famotidine 20 MG/2 ML SDV IVPUSH ONE (01:19)
--- NOTE | 2020-08-15 01:25 | CRLCR ---
INDICATION: COVID positive. TECHNIQUE: Upright portable AP image of the chest. COMPARISON: 03/27/2011. FINDINGS: Subtle patchy infiltrates suggested in the mid and inferior aspects of both lungs. No pleural effusion. Heart size and pulmonary vasculature within normal limits. No significant bony abnormality. IMPRESSION: Subtle patchy infiltrates suggested in the mid and inferior aspects of both lungs. Dictated by Salvador Guillaume MD @ Aug 15 2020 1:19AM Signed by Dr. Salvador Guillaume @ Aug 15 2020 1:23AM
[2020-08-15] MEDS ORDERED: Iopamidol 755 Mg/ML 100 ML Bottle IV STA (03:55)
[2020-08-15] MEDS ORDERED: Sodium Chloride 0.9% 100 ML IV STA (03:55)
--- NOTE | 2020-08-15 05:25 | CRLCT ---
INDICATION: COVID pneumonia TECHNIQUE: CT chest PE was acquired with 100 cc Isovue 370 intravenous contrast. COMPARISON: None. FINDINGS: Heart and vasculature: Contrast opacification of the pulmonary arterial tree is adequate. No sign of pulmonary embolism. Mild atherosclerotic calcification. Thoracic aorta is normal in caliber. Lungs and pleural: No pleural effusion or pneumothorax. Fairly extensive peripheral ground-glass opacities involving all lobes with some areas of bandlike atelectasis in the lower lobes. Lymph nodes/mediastinum: Subcarinal lymph nodes measure up to 12 millimeters in short axis. Chest wall: No masses. Upper abdomen: Normal. Bones: Unremarkable for age. IMPRESSION: 1. No evidence of pulmonary embolus. 2. Extensive bilateral areas of ground-glass opacification. In the setting of a positive COVID Diagnosis, findings are consistent with COVID-19 pneumonia. 3. Subcarinal adenopathy, presumed secondary to the pulmonary infection. Please note that all CT scans at this facility use dose modulation, iterative reconstruction, and/or weight-based dosing when appropriate to reduce radiation dose to as low as reasonably achievable. Dictated by Osmel Guerin MD @ Aug 15 2020 5:17AM Signed by Dr. Osmel Guerin @ Aug 15 2020 5:25AM
== END 2020-08-15 05:07 ==
LOC: JP.ED 23:48
DX: U07.1 COVID-19 (principal); J12.89 Other viral pneumonia; E86.0 Dehydration; D72.819 Decreased white blood cell count, unspecified; I10 Essential (primary) hypertension; E78.00 Pure hypercholesterolemia, unspecified; M19.90 Unspecified osteoarthritis, unspecified site; Z90.710 Acquired absence of both cervix and uterus; Z88.5 Allergy status to narcotic agent; Z79.82 Long term (current) use of aspirin; Z79.899 Other long term (current) drug therapy
CPT/HCPCS: 36415; 71045; 71275; 80053; 81001; 83615; 85025; 85379; 86140; 96361; 96374; 96375; 99285; J2405; J3490; J7030; J7050; Q9967; 99284

== ENCOUNTER 2024-12-01 08:54 | Emergency (ER) | payer MEDICARE, BC ==
[2024-12-01] MEDS ORDERED: Naloxone 0.4 MG/ML SDV IVPUSH PRN (09:39)
[2024-12-01 09:52] LABS: BASOPHILS PERCENT AUTO 0.1 % (0.1-1.3); EOSINOPHILS ABSOLUTE AUTO 0.06 K/uL (0.00-0.40); EOSINOPHILS PERCENT AUTO 0.8 % (0.0-5.4); HEMATOCRIT 35.2 % (34.3-46.0); HEMOGLOBIN 12.1 g/dL (11.2-15.5); IMMATURE GRAN PERCENT AUTO 0.3 % (0.0-0.7); LYMPHOCYTES ABSOLUTE AUTO 0.91 K/uL (0.8-3.3); LYMPHOCYTES PERCENT AUTO 12.8 % (11.4-47.7); MEAN CORPUSCULAR HEMOGLOBIN 29.7 pg (31.6-35.5); MEAN CORPUSCULAR HGB CONC 34.4 g/dL (31.6-35.5); MEAN CORPUSCULAR VOLUME 86.3 fL (81.4-99.0); MONOCYTES ABSOLUTE AUTO 0.41 K/uL (0.20-0.90); MONOCYTES PERCENT AUTO 5.8 % (3.3-12.6); NEUTROPHILS ABSOLUTE AUTO 5.72 K/uL (1.0-7.6); NEUTROPHILS PERCENT AUTO 80.2 % (40.0-78.1); PLATELET COUNT,PLT 201 K/uL (130-375); RED BLOOD CELL COUNT 4.08 M/uL (3.77-5.24); WHITE BLOOD CELL COUNT,WBC 7.1 K/uL (3.2-11.0)
[2024-12-01 09:54] LABS: BASOPHILS ABSOLUTE AUTO 0.01 K/uL (0.00-0.10); IMMATURE GRAN ABSOLUTE AUTO 0.02 K/uL (0.00-0.23)
[2024-12-01] MEDS: Sodium Chloride 0.9% 1,000 ML IV SCH (09:55)
[2024-12-01] MEDS: Ondansetron 4 MG/2 ML SDV IVPUSH ONE (09:56)
[2024-12-01 09:57] LABS: APPEARANCE,URINE CLEAR (CLEAR); BILIRUBIN,URINE NEGATIVE (NEGATIVE); COLOR,URINE YELLOW (YELLOW); GLUCOSE,URINE NEGATIVE (NEGATIVE); KETONES,URINE NEGATIVE (NEGATIVE); LEUKOCYTE ESTERASE,URINE NEGATIVE (NEGATIVE); NITRITE,URINE NEGATIVE (NEGATIVE); OCCULT BLOOD,URINE NEGATIVE (NEGATIVE); PH,URINE 5.5 (5.0-8.0); PROTEIN,URINE NEGATIVE (NEGATIVE); UROBILINOGEN,URINE 0.2 EU/dL (0.2-1.0)
[2024-12-01] MEDS: HYDROmorphone 0.5 MG/0.5 ML Syringe IVPUSH ONE ×2 (09:59→12:26)
[2024-12-01 10:08] LABS: AMORPHOUS SEDIMENT,URINE NOT SEEN; BACTERIA,URINE MANY; EPITHELIAL CELLS,URINE FEW; MUCUS,URINE NOT SEEN; RBC,URINE 0-5 (0-5); WBC,URINE 0-5 (0-5)
[2024-12-01 10:14] LABS: A/G RATIO 1.3 (1.2-2.2); ALANINE AMINOTRANSFERASE,ALT 22 U/L (12-78); ALKALINE PHOSPHATASE 76 U/L (46-116); ANION GAP 12.3 mmol/L (5.0-14.0); ASPARTATE AMNIOTRANSFERASE,AST 21 U/L (15-37); BILIRUBIN TOTAL 0.7 mg/dL (0.2-1.0); BLOOD UREA NITROGEN,BUN 16 mg/dL (7-18); C-REACTIVE PROTEIN < 0.50 mg/dL (<0.50); CALCIUM 9.2 mg/dL (8.5-10.1); CARBON DIOXIDE,CO2 30 mmol/L (21-32); CHLORIDE,CL 101 mmol/L (100-108); CREATININE 1.1 mg/dL (0.6-1.0); EST CRCL DRUG DOSING (CG) 36.55 mL/min; ESTIMATED GFR 52 mL/min (>60); GLUCOSE RANDOM 98 mg/dL (74-106); POTASSIUM,K 3.3 mmol/L (3.6-5.2); PROTEIN TOTAL,TP 7.2 g/dL (6.4-8.2); SODIUM,NA 140 mmol/L (140-148)
[2024-12-01 10:20] LABS: TROPONIN I HIGH SENSITIVITY < 4.0 pg/mL (<=60.3)
[2024-12-01] MEDS: Iopamidol 612 MG/ML 100 ML Bottle IV PRN (11:29)
[2024-12-01] MEDS: Sodium Chloride 0.9% 80 ML IV ONE (11:29)
[2024-12-01] MEDS: Sodium Chloride 0.9% 1,000 ML IV ONE (12:48)
[2024-12-01 13:19] VITALS: BP 145/78; PULSE 65
== END 2024-12-01 14:15 | disposition home or self-care (01) ==
LOC: JP.ED 08:54
DX: K56.7 Ileus, unspecified (principal); I10 Essential (primary) hypertension; E78.00 Pure hypercholesterolemia, unspecified; Z86.73 Personal history of transient ischemic attack (TIA), and cerebral infarction without residual deficits; Z88.5 Allergy status to narcotic agent; Z79.82 Long term (current) use of aspirin; Z79.899 Other long term (current) drug therapy
CPT/HCPCS: 36415; 74177; 76705; 80053; 81001; 83605; 83690; 84145; 84484; 85025; 85651; 86140; 93005; 93010; 96361; 96374; 96375; 96376; 99284; 99285; J2405; J7030; Q9967

== ENCOUNTER 2024-12-02 09:42 | Inpatient (IN) | payer MEDICARE, BC ==
[2024-12-02] MEDS ORDERED: Naloxone 0.4 MG/ML SDV IVPUSH PRN (09:53)
[2024-12-02] MEDS: HYDROmorphone 0.5 MG/0.5 ML Syringe IVPUSH ONE ×2 (10:00→12:54)
[2024-12-02] MEDS: Ondansetron 4 MG/2 ML SDV IVPUSH ONE (10:00)
[2024-12-02 10:05] LABS: BASOPHILS PERCENT AUTO 0.2 % (0.1-1.3); EOSINOPHILS PERCENT AUTO 0.2 % (0.0-5.4); HEMATOCRIT 40.4 % (34.3-46.0); HEMOGLOBIN 14.1 g/dL (11.2-15.5); IMMATURE GRAN ABSOLUTE AUTO 0.04 K/uL (0.00-0.23); IMMATURE GRAN PERCENT AUTO 0.4 % (0.0-0.7); LYMPHOCYTES ABSOLUTE AUTO 1.27 K/uL (0.8-3.3); LYMPHOCYTES PERCENT AUTO 11.2 % (11.4-47.7); MEAN CORPUSCULAR HGB CONC 34.9 g/dL (31.6-35.5); MONOCYTES ABSOLUTE AUTO 0.58 K/uL (0.20-0.90); MONOCYTES PERCENT AUTO 5.1 % (3.3-12.6); NEUTROPHILS ABSOLUTE AUTO 9.43 K/uL (1.0-7.6); NEUTROPHILS PERCENT AUTO 82.9 % (40.0-78.1); PLATELET COUNT,PLT 252 K/uL (130-375); WHITE BLOOD CELL COUNT,WBC 11.4 K/uL (3.2-11.0)
[2024-12-02] MEDS: Lactated Ringers 1,000 ML IV SCH ×2 (10:08→16:44)
[2024-12-02 10:09] LABS: BASOPHILS ABSOLUTE AUTO 0.02 K/uL (0.00-0.10); EOSINOPHILS ABSOLUTE AUTO 0.02 K/uL (0.00-0.40)
[2024-12-02 10:33] LABS: A/G RATIO 1.2 (1.2-2.2); ALANINE AMINOTRANSFERASE,ALT 23 U/L (12-78); ALBUMIN 4.5 g/dL (3.4-5.0); ALKALINE PHOSPHATASE 88 U/L (46-116); ASPARTATE AMNIOTRANSFERASE,AST 23 U/L (15-37); BILIRUBIN TOTAL 0.9 mg/dL (0.2-1.0); BLOOD UREA NITROGEN,BUN 10 mg/dL (7-18); CALCIUM 9.5 mg/dL (8.5-10.1); CARBON DIOXIDE,CO2 27 mmol/L (21-32); CHLORIDE,CL 98 mmol/L (100-108); CREATININE 1.4 mg/dL (0.6-1.0); ESTIMATED GFR 39 mL/min (>60); GLUCOSE RANDOM 119 mg/dL (74-106); PROTEIN TOTAL,TP 8.4 g/dL (6.4-8.2); SODIUM,NA 139 mmol/L (140-148)
[2024-12-02 10:37] LABS: C-REACTIVE PROTEIN < 0.50 mg/dL (<0.50)
[2024-12-02] MEDS: HYDROmorphone 0.5 MG/0.5 ML Syringe IVPUSH PRN ×2 (14:45→16:43)
[2024-12-02] MEDS ORDERED: Melatonin 3 MG Tab PO PRN (15:00)
[2024-12-02] MEDS: Potassium Chloride 10 MEQ in Premix Bag 1 BAG IV ONE (16:43)
[2024-12-02] MEDS: Potassium Chloride 20 MEQ Tab.ER PO ONE (16:45)
[2024-12-02] MEDS: Ondansetron 4 MG/2 ML SDV IV PRN (19:09)
[2024-12-03 06:17] LABS: HEMATOCRIT 36.2 % (34.3-46.0); HEMOGLOBIN 12.5 g/dL (11.2-15.5); MEAN CORPUSCULAR HEMOGLOBIN 29.5 pg (31.6-35.5); MEAN CORPUSCULAR HGB CONC 34.5 g/dL (31.6-35.5); MEAN CORPUSCULAR VOLUME 85.4 fL (81.4-99.0); RED BLOOD CELL COUNT 4.24 M/uL (3.77-5.24); WHITE BLOOD CELL COUNT,WBC 10.7 K/uL (3.2-11.0)
[2024-12-03 06:38] LABS: A/G RATIO 1.1 (1.2-2.2); ALANINE AMINOTRANSFERASE,ALT 15 U/L (12-78); ALBUMIN 3.4 g/dL (3.4-5.0); ALKALINE PHOSPHATASE 67 U/L (46-116); ASPARTATE AMNIOTRANSFERASE,AST 17 U/L (15-37); BILIRUBIN TOTAL 0.6 mg/dL (0.2-1.0); BLOOD UREA NITROGEN,BUN 13 mg/dL (7-18); CALCIUM 8.7 mg/dL (8.5-10.1); CARBON DIOXIDE,CO2 26 mmol/L (21-32); CHLORIDE,CL 102 mmol/L (100-108); EST CRCL DRUG DOSING (CG) 40.19 mL/min; ESTIMATED GFR 59 mL/min (>60); GLUCOSE RANDOM 108 mg/dL (74-106); PHOSPHORUS 3.5 mg/dL (2.5-4.9); POTASSIUM,K 3.5 mmol/L (3.6-5.2); PROTEIN TOTAL,TP 6.5 g/dL (6.4-8.2); SODIUM,NA 139 mmol/L (140-148)
[2024-12-03 06:41] LABS: ANION GAP 14.5 mmol/L (5.0-14.0)
[2024-12-03] MEDS: HYDROmorphone 0.5 MG/0.5 ML Syringe IVPUSH PRN (10:14)
[2024-12-03] MEDS: Diatrizoate Meglumine/Diatrizoate Sodium 37% 120 ML Bottle PO SCH (12:09)
[2024-12-03] MEDS: Lactated Ringers 1,000 ML IV SCH (14:18)
[2024-12-03] MEDS: LORazepam 2 MG/ML SDV IVPUSH PRN (14:38)
[2024-12-03] MEDS: Pantoprazole 40 MG Vial IVPUSH SCH (17:56)
[2024-12-03] MEDS: Potassium Chloride 10 MEQ in Premix Bag 1 BAG IV SCH (18:27)
[2024-12-03] MEDS: Lactated Ringers 500 ML IV SCH (19:14)
[2024-12-03] MEDS: Lidocaine 4% Top Soln 50 ML Bottle MUCMEM ONE (22:26)
[2024-12-04 05:44] LABS: ANION GAP 8.2 mmol/L (5.0-14.0); CALCIUM 9.2 mg/dL (8.5-10.1); EST CRCL DRUG DOSING (CG) 40.19 mL/min; POTASSIUM,K 4.1 mmol/L (3.6-5.2)
[2024-12-04] MEDS ORDERED: Phenol/Sodium Phenolate Spray 180 ML Bottle MUCMEM PRN (12:37)
[2024-12-04] MEDS: Benzocaine/Cetylpyridinium/Menthol Lozenge MUCMEM PRN (15:14)
[2024-12-04] MEDS: Melatonin 3 MG Tab PO PRN (23:48)
[2024-12-05] MEDS: Acetaminophen 325 MG Tab PO PRN (03:23)
[2024-12-05 05:21] LABS: HEMATOCRIT 32.5 % (34.3-46.0); MEAN CORPUSCULAR HEMOGLOBIN 29.7 pg (31.6-35.5); MEAN CORPUSCULAR HGB CONC 33.8 g/dL (31.6-35.5); MEAN CORPUSCULAR VOLUME 87.8 fL (81.4-99.0); RED BLOOD CELL COUNT 3.7 M/uL (3.77-5.24); WHITE BLOOD CELL COUNT,WBC 8.4 K/uL (3.2-11.0)
[2024-12-05 05:38] LABS: ANION GAP 8.3 mmol/L (5.0-14.0); CALCIUM 8.8 mg/dL (8.5-10.1); EST CRCL DRUG DOSING (CG) 40.19 mL/min; POTASSIUM,K 3.6 mmol/L (3.6-5.2)
[2024-12-05] MEDS: Benzocaine/Cetylpyridinium/Menthol Lozenge MUCMEM PRN (12:21)
[2024-12-05] MEDS: LORazepam 0.5 MG Tab PO PRN (12:43)
[2024-12-06] MEDS: Metoprolol Succinate 25 MG Tab.ER PO SCH (12:30)
[2024-12-06] MEDS: amLODIPine 5 MG Tab PO SCH (12:30)
[2024-12-07] MEDS: Aspirin 81 MG Tab.EC PO SCH (08:16)
[2024-12-07] MEDS ORDERED: Sodium Chloride 0.9% 10 ML Syringe IV PRN (09:09)
[2024-12-07 16:17] VITALS: BP 154/94; PULSE 67
== END 2024-12-07 16:35 | disposition home or self-care (01) | DRG 390 ==
LOC: JP.ED 09:42 → JP.MS 13:32
PROVIDERS: ADMIT Hospitalist; ATTEND Hospitalist
PROC: 0D9670Z Drainage of Stomach with Drainage Device, Via Natural or Artificial Opening (ICD-10-PCS; principal; 2024-12-04)
DX: K56.609 Unspecified intestinal obstruction, unspecified as to partial versus complete obstruction (principal); K52.839 Microscopic colitis, unspecified; H54.7 Unspecified visual loss; Z96.659 Presence of unspecified artificial knee joint; E87.6 Hypokalemia; E78.00 Pure hypercholesterolemia, unspecified; I10 Essential (primary) hypertension; M19.90 Unspecified osteoarthritis, unspecified site; G43.909 Migraine, unspecified, not intractable, without status migrainosus; Z86.16 Personal history of COVID-19; Z98.49 Cataract extraction status, unspecified eye; Z90.710 Acquired absence of both cervix and uterus; Z90.49 Acquired absence of other specified parts of digestive tract; Z88.5 Allergy status to narcotic agent; Z79.82 Long term (current) use of aspirin; Z79.1 Long term (current) use of non-steroidal anti-inflammatories (NSAID); Z79.2 Long term (current) use of antibiotics; Z79.899 Other long term (current) drug therapy; Z79.02 Long term (current) use of antithrombotics/antiplatelets; Z90.89 Acquired absence of other organs; Z87.81 Personal history of (healed) traumatic fracture; Z98.890 Other specified postprocedural states; Z87.891 Personal history of nicotine dependence
CPT/HCPCS: 36415; 51798; 71045; 71045-26; 74018; 74018-26; 74019; 74019-26; 80048; 80053; 82947; 83605; 84100; 84132; 85025; 85027; 86140; 96361; 96374; 96375; 96376; 99223; 99232; 99238; 99284-25; 99285; A9270-GY; J2060; J2405; J2470; J3480; J7120; Q9963

== ENCOUNTER 2024-12-11 13:13 | Emergency (ER) | payer MEDICARE, BC ==
[2024-12-11] MEDS: Sodium Chloride 0.9% 80 ML IV ONE (15:34)
[2024-12-11] MEDS: Sodium Chloride 0.9% 10 ML Syringe FLUSH PRN (15:34)
[2024-12-11] MEDS: Iopamidol 612 MG/ML 100 ML Bottle IV PRN (15:34)
[2024-12-11] MEDS: Sodium Chloride 0.9% 1,000 ML IV ONE (15:51)
[2024-12-11 16:01] VITALS: BP 129/88; PULSE 81
== END 2024-12-11 17:31 | disposition home or self-care (01) ==
LOC: JP.ED 13:13
DX: R14.0 Abdominal distension (gaseous) (principal); I10 Essential (primary) hypertension; E78.00 Pure hypercholesterolemia, unspecified; Z86.73 Personal history of transient ischemic attack (TIA), and cerebral infarction without residual deficits; Z88.5 Allergy status to narcotic agent; Z79.85 Long-term (current) use of injectable non-insulin antidiabetic drugs; Z79.899 Other long term (current) drug therapy; Z79.82 Long term (current) use of aspirin; Z86.16 Personal history of COVID-19; Z90.710 Acquired absence of both cervix and uterus; Z87.891 Personal history of nicotine dependence; Z87.19 Personal history of other diseases of the digestive system
CPT/HCPCS: 74177; 96360; 99284; J7030; Q9967

== ENCOUNTER 2025-06-15 09:17 | Emergency (ER) | payer MEDICARE, BC ==
[2025-06-15 09:53] LABS: BASOPHILS PERCENT AUTO 0.2 % (0.1-1.3); EOSINOPHILS ABSOLUTE AUTO 0.10 K/uL (0.00-0.40); EOSINOPHILS PERCENT AUTO 1.7 % (0.0-5.4); IMMATURE GRAN ABSOLUTE AUTO 0.03 K/uL (0.00-0.23); IMMATURE GRAN PERCENT AUTO 0.5 % (0.0-0.7); LYMPHOCYTES ABSOLUTE AUTO 1.32 K/uL (0.8-3.3); LYMPHOCYTES PERCENT AUTO 23.0 % (11.4-47.7); MONOCYTES ABSOLUTE AUTO 0.58 K/uL (0.20-0.90); MONOCYTES PERCENT AUTO 10.1 % (3.3-12.6); NEUTROPHILS ABSOLUTE AUTO 3.70 K/uL (1.0-7.6); NEUTROPHILS PERCENT AUTO 64.5 % (40.0-78.1); PLATELET COUNT,PLT 216 K/uL (130-375); RED BLOOD CELL COUNT 4.21 M/uL (3.77-5.24); WHITE BLOOD CELL COUNT,WBC 5.7 K/uL (3.2-11.0)
[2025-06-15 10:10] LABS: BASOPHILS ABSOLUTE AUTO 0.01 K/uL (0.00-0.10); INR 1.1
[2025-06-15 10:23] LABS: A/G RATIO 1.2 (1.2-2.2); ALANINE AMINOTRANSFERASE,ALT 33 U/L (12-78); ASPARTATE AMNIOTRANSFERASE,AST 23 U/L (15-37); BILIRUBIN TOTAL 0.7 mg/dL (0.2-1.0); BLOOD UREA NITROGEN,BUN 26 mg/dL (7-18); CARBON DIOXIDE,CO2 31 mmol/L (21-32); CHLORIDE,CL 105 mmol/L (100-108); CREATININE 1.4 mg/dL (0.6-1.0); EST CRCL DRUG DOSING (CG) 28.28 mL/min; ESTIMATED GFR 39 mL/min (>60); GLUCOSE RANDOM 90 mg/dL (74-106); POTASSIUM,K 3.3 mmol/L (3.6-5.2); PROTEIN TOTAL,TP 6.9 g/dL (6.4-8.2); SODIUM,NA 143 mmol/L (140-148); T4 FREE 1.09 ng/dL (0.76-1.46); TSH ULTRASENSITIVE 6.822 uIU/mL (0.358-3.740)
[2025-06-15] MEDS: Iopamidol 755 Mg/ML 100 ML Bottle IV ONE (11:33)
[2025-06-15] MEDS: Sodium Chloride 0.9% 10 ML Syringe FLUSH ONE (11:34)
[2025-06-15 13:02] VITALS: BP 165/111; PULSE 79
== END 2025-06-15 15:12 | disposition home or self-care (01) ==
LOC: JP.ED 09:17
DX: I63.9 Cerebral infarction, unspecified (principal); I10 Essential (primary) hypertension; E78.00 Pure hypercholesterolemia, unspecified; M19.90 Unspecified osteoarthritis, unspecified site; Z79.899 Other long term (current) drug therapy; Z79.82 Long term (current) use of aspirin; Z90.49 Acquired absence of other specified parts of digestive tract; Z90.710 Acquired absence of both cervix and uterus; Z86.16 Personal history of COVID-19
CPT/HCPCS: 36415; 70450; 70496; 70498; 80053; 84439; 84443; 85025; 85610; 93005; 93242; 99285; A9270; Q9967